=== PATIENT | male | born 1945 | race Caucasian/White ===

== ENCOUNTER 2022-10-04 12:49 | Outpatient (CLI) | payer MEDICARE | END 2022-10-04 12:50 | disposition home or self-care (01) | LOC: CSHWCC 12:49 | PROVIDERS: ATTEND Nurse Practitioner Family | DX: L97.319 Non-pressure chronic ulcer of right ankle with unspecified severity (principal) | CPT/HCPCS: 97139; G0463; 99205 ==

== ENCOUNTER 2022-10-04 15:03 | Outpatient (CLI) | payer MEDICARE | END 2022-10-04 15:04 | disposition home or self-care (01) | LOC: CSHRAD 15:03 | PROVIDERS: ATTEND Family Medicine | DX: L97.319 Non-pressure chronic ulcer of right ankle with unspecified severity (principal) ==

== ENCOUNTER 2022-10-18 12:06 | Outpatient (CLI) | payer MEDICARE | END 2022-10-18 12:07 | disposition home or self-care (01) | LOC: CSHWCC 12:06 | PROVIDERS: ATTEND Nurse Practitioner Family | DX: I87.313 Chronic venous hypertension (idiopathic) with ulcer of bilateral lower extremity (principal); L97.412 Non-pressure chronic ulcer of right heel and midfoot with fat layer exposed; L97.822 Non-pressure chronic ulcer of other part of left lower leg with fat layer exposed; R60.0 Localized edema | CPT/HCPCS: 11042; 29581; 97139; 97607; G0463; 99212 ==

== ENCOUNTER 2022-11-01 11:35 | Outpatient (CLI) | payer MEDICARE | END 2022-11-01 11:36 | disposition home or self-care (01) | LOC: CSHWCC 11:35 | PROVIDERS: ATTEND Nurse Practitioner Family | DX: I87.313 Chronic venous hypertension (idiopathic) with ulcer of bilateral lower extremity (principal); L97.312 Non-pressure chronic ulcer of right ankle with fat layer exposed; L97.412 Non-pressure chronic ulcer of right heel and midfoot with fat layer exposed; L97.822 Non-pressure chronic ulcer of other part of left lower leg with fat layer exposed; R60.0 Localized edema | CPT/HCPCS: 29581 ==

== ENCOUNTER 2022-11-16 14:21 | Outpatient (CLI) | payer MEDICARE | END 2022-11-16 14:22 | disposition home or self-care (01) | LOC: CSHWCC 14:21 | PROVIDERS: ATTEND Nurse Practitioner Family | DX: I87.311 Chronic venous hypertension (idiopathic) with ulcer of right lower extremity (principal); L97.312 Non-pressure chronic ulcer of right ankle with fat layer exposed; L97.412 Non-pressure chronic ulcer of right heel and midfoot with fat layer exposed; R60.0 Localized edema ==